=== PATIENT | male | born 1975 | race Caucasian/White ===

== ENCOUNTER → 2016-09-03 | Outpatient (CLI) | payer MEDICAID | LOC: FIMAGING 06:32 | DX: S33.130A Subluxation of L3/L4 lumbar vertebra, initial encounter (principal); S33.140A Subluxation of L4/L5 lumbar vertebra, initial encounter ==

== ENCOUNTER → 2016-10-25 | Outpatient (CLI) | payer MEDICAID | LOC: FIMAGING 14:11 | DX: M54.42 Lumbago with sciatica, left side (principal); M43.06 Spondylolysis, lumbar region; M43.16 Spondylolisthesis, lumbar region; M51.26 Other intervertebral disc displacement, lumbar region ==

== ENCOUNTER → 2016-10-25 | Outpatient (CLI) | payer MEDICAID | LOC: FIMAGING 14:25 | DX: M54.42 Lumbago with sciatica, left side (principal); M43.06 Spondylolysis, lumbar region; M43.16 Spondylolisthesis, lumbar region ==

== ENCOUNTER → 2016-10-27 | Outpatient (CLI) | payer MEDICAID | LOC: FIMAGING 12:56 | DX: M54.42 Lumbago with sciatica, left side (principal); M43.16 Spondylolisthesis, lumbar region; M51.26 Other intervertebral disc displacement, lumbar region; M48.06 Spinal stenosis, lumbar region ==

== ENCOUNTER → 2017-02-10 | Day surgery (SDC) | payer MEDICAID ==
[~2017-02-10] MED LIST: LIDOCAINE 1% 2 ML INJ ID PRN; LIDOCAINE 1% 2 ML INJ ONE; LR 1,000 ML IV ONE; LR 500 ML IV PRN; MEPERIDINE 25 MG/ML SYR IVP PRN; MIDAZOLAM 2 MG/2 ML VIAL ONE; NALOXONE HCL 0.4 MG/ML INJ IVP PRN; ONDANSETRON 4 MG/2 ML VIAL IVP PRN; ONDANSETRON 4 MG/2 ML VIAL ONE; PROPOFOL 200 MG/20 ML VIAL ONE; fentaNYL 100 MCG/2 ML INJ IVP PRN
--- NOTE | 2017-02-10 09:03 | PDANEPAE ---
ANE History of Present Illness 41 year old male here for colonoscopy. ANE Past Medical History - Cardiovascular History Hx Hypertension: Yes Hx Arrhythmias: No Hx Chest Pain: No Hx Coronary Artery / Peripheral Vascular Disease: No Hx CHF / Valvular Disease: No Hx Palpitations: No - Pulmonary History Hx COPD: No Hx Asthma/Reactive Airway Disease: Yes Hx Recent Upper Respiratory Infection: No Hx Oxygen in Use at Home: No Hx Sleep Apnea: No - Neurologic History Hx Cerebrovascular Accident: No Hx Seizures: No - Endocrine History Hx Diabetes: No Hypothyroid: No Hyperthyroid: No - Renal History Hx Renal Disorders: No - Liver History Hx Hepatic Disorders: No - Neurological & Psychiatric Hx Hx Neurological and Psychiatric Disorders: Yes Neurological / Psychiatric History Comment: Anxiety, depression, bipolar with social anxiety - Cancer History Hx Cancer: No - GI History GERD: no - Chronic Pain History Chronic Pain: Yes (chronic lumbar back pain from self reported vertebral fractures. ) ANE Review of Systems - Exercise capacity Exercise capacity: >=4 METS ANE Patient History - Home Medications Home medications: home medication list seen and reviewed - NPO status NPO Status: no food or drink >8 hours - Anes Hx Anes Hx: no prior problems - Smoking Hx Marijuana use: No - Alcohol Use Alcohol Use: Sober - Family Anes Hx Family Anes Hx: neg - N/A ANE Labs/Vital Signs - Vital Signs Vital Signs: reviewed preoperatively; see RN documention for details ANE Physical Exam - Airway Neck exam: FROM Mallampati Score: Class 2 Mouth exam: normal dental/mouth exam, feliciano - Pulmonary Pulmonary: no respiratory distress - Cardiovascular Cardiovascular: regular rate and rhythym - ASA Status ASA Status: II ANE Anesthesia Plan Anesthesia Plan: GA with mask Total IV Anesthesia: Yes
--- NOTE | 2017-02-10 09:43 | PDGENHP ---
History & Physical Chief Complaint: hematochezia History of Present Illness: hematochezia Pertinent Past, Social, Family History: reviewed Relevant Physical Exam: nad Cardiorespiratory Assessment: rrr. ctab
--- NOTE | 2017-02-10 10:35 | GPN ---
[f rep st] PROCEDURE NOTE DATE OF PROCEDURE: 02/10/2017 PROCEDURE: Colonoscopy with polypectomy. INDICATION: History of hematochezia. CONSENT: Informed consent was obtained from the patient after an explanation of risks, benefits, an d alternatives to the procedure. ESTIMATED BLOOD LOSS: None. COMPLICATIONS: None. MEDICATIONS GIVEN: Per Anesthesia. DESCRIPTION OF EXAM: After adequate sedation was achieved, the colonoscope was advanced under direc t vision through the anal orifice and as far as the cecum and terminal ileum. Views were good. Pre p was good. Patient tolerance was good. Retroflexion was performed in the ascending colon and in t he rectum. Findings are as below. FINDINGS: 1. Normal terminal ileum. 2. 3 mm hepatic flexure polyp was removed completely with cold snare polypectomy, retrieved, and pl aced in jar 1. 3. 3 mm sigmoid colon polyp was removed completely with cold snare polypectomy, retrieved, and plac ed in jar 2. 4. 2 mm sigmoid colon polyp was removed completely with cold biopsy forceps as it was flat and plac ed in jar 2. 5. Medium-sized internal hemorrhoids were noted. 6. A hypertrophied anal papilla was noted that was protruding into the anal canal. This likely rep resents what was noted on patient's previous rectal exam. IMPRESSION: Three polyps removed. Suspect hematochezia was likely due to hemorrhoids, although giv en this is no longer an issue, I do not think further treatment is needed at this time. RECOMMENDATIONS: 1. Await pathology results. 2. If 1 or 2 polyps are adenomas, then repeat colonoscopy in 5 years. If all 3 polyps are adenomas , then repeat colonoscopy in 3 years. 3. If hematochezia recurs on a regular basis, please refer back to me for possible treatment of his hemorrhoids. 4. Resume regular diet. /[id number]/MODL
[2017-02-10 10:48] VITALS: TEMP 97.9
[2017-02-10 11:00] VITALS: PULSE 71; RESP 16
[2017-02-10 11:32] VITALS: BP 114/82; O2SAT 95
--- NOTE | 2017-02-10 11:54 | POSTANESTH ---
Post Anesthetic Evaluation Cardiovascular Status: Normal, Stable Respiratory Status: Normal, Stable Level of Consciousness/Mental Status: Can Participate in Eval, Alert and Oriented Pain Control: Adequate, Prn Tx Ordered Nausea/Vomiting Control: Adequate, Prn Tx Ordered Complications Possibly Related to Anesthesia: None Noted
== END | disposition home or self-care (01) ==
LOC: FSGY 08:30
PROVIDERS: ATTEND Internal Medicine
DX: D12.5 Benign neoplasm of sigmoid colon (principal); D12.3 Benign neoplasm of transverse colon; K64.8 Other hemorrhoids; D12.9 Benign neoplasm of anus and anal canal; Z86.010 Personal history of colon polyps; F41.8 Other specified anxiety disorders; F31.9 Bipolar disorder, unspecified; M54.5 Low back pain
CPT/HCPCS: J2250; J2405; J2704

== ENCOUNTER 2017-05-09 05:26 | Day surgery (SDC) | payer MEDICAID ==
[2017-05-09] MEDS ORDERED: LR 1,000 ML IV ONE (05:58)
[2017-05-09] MEDS ORDERED: LIDOCAINE 1% 2 ML INJ ID PRN (05:58)
[2017-05-09 06:25] VITALS: PULSE 66
[2017-05-09] MEDS ORDERED: LIDOCAINE 1% 300 MG/30 ML SDV ONE (06:31)
[2017-05-09] MEDS ORDERED: BUPIVACAINE 0.5% 30 ML SDV ONE (06:31)
--- NOTE | 2017-05-09 07:04 | PDANEPAE ---
ANE History of Present Illness Laparoscopic BL inguinal hernia ANE Past Medical History - Cardiovascular History Hx Hypertension: Yes Hx Arrhythmias: No Hx Chest Pain: No Hx Coronary Artery / Peripheral Vascular Disease: No Hx CHF / Valvular Disease: No Hx Palpitations: No - Pulmonary History Hx COPD: No Hx Asthma/Reactive Airway Disease: No Hx Recent Upper Respiratory Infection: No Hx Oxygen in Use at Home: No Hx Sleep Apnea: No Sleep Apnea Screening Result - Last Documented: Negative Pulmonary History Comment: asthma as child - Neurologic History Hx Cerebrovascular Accident: No Hx Seizures: No Hx Dementia: No - Endocrine History Hx Diabetes: No Hypothyroid: No Hyperthyroid: No - Renal History Hx Renal Disorders: No - Liver History Hx Hepatic Disorders: No - Neurological & Psychiatric Hx Hx Neurological and Psychiatric Disorders: Yes Neurological / Psychiatric History Comment: Anxiety, depression, bipolar with social anxiety, spinal injury - Cancer History Hx Cancer: No - Congenital Disorder History Hx Congenital Disorders: No - GI History GERD: no Hx Gastrointestinal Disorders: No - Other Health History Other Health History: 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 RT SIDED SCIATICA - Chronic Pain History Chronic Pain: Yes (chronic lumbar back pain from self reported vertebral fractures. ) - Surgical History Prior Surgeries: APPENDECTOMY. COLONOSCOPY WITH POLYP REMVL ANE Review of Systems Review of systems is: negative Review of Systems: - Exercise capacity METS (RN): 4 METS ANE Patient History - Allergies Allergies/Adverse Reactions: No Known Allergies Allergy (Unverified 02/10/17 09:19) - Home Medications Home Medications: Lisinopril DAILY06 05/05/17 [Last Taken 05/09/17 04:30] - NPO status NPO Since - Liquids (Date): 05/08/17 NPO Since - Liquids (Time): 21:00 NPO Since - Solids (Date): 05/08/17 NPO Since - Solids (Time): 19:00 - Anes Hx Anes Hx: post operative nausea and vomiting - Smoking Hx Smoking Status: Light smoker Marijuana use: No - Alcohol Use Alcohol Use: Rarely - Family Anes Hx Family Anes Hx: none ANE Labs/Vital Signs - Vital Signs Blood Pressure: 121/72 Heart Rate: 66 Respiratory Rate: 16 O2 Sat (%): 93 Height: 180.34 cm Weight: 92.986 kg ANE Physical Exam - Airway Neck exam: FROM Mallampati Score: Class 3 Mouth exam: small mouth opening - Pulmonary Pulmonary: no respiratory distress, no rales or rhonchi - Cardiovascular Cardiovascular: regular rate and rhythym, no murmur, rub, or gallop - ASA Status ASA Status: II ANE Anesthesia Plan Anesthesia Plan: general endotracheal anesthesia Specialized Airway: video laryngoscope
[2017-05-09] MEDS ORDERED: MIDAZOLAM 2 MG/2 ML VIAL IVP ONE (07:05)
[2017-05-09] MEDS ORDERED: MIDAZOLAM 2 MG/2 ML VIAL ONE (07:08)
[2017-05-09] MEDS ORDERED: PROPOFOL 200 MG/20 ML VIAL ONE (07:12)
[2017-05-09] MEDS ORDERED: PROPOFOL/EMULSION 500 MG/50 ML BOTTLE IV ONE (07:12)
--- NOTE | 2017-05-09 07:12 | PDHPUP ---
History & Physical Update H&P update statement: This history and physical update is based on an assessment of the patient which was completed after admission or registration (within 24 hours), but prior to the surgery/procedure.
[2017-05-09] MEDS ORDERED: fentaNYL 100 MCG/2 ML INJ ONE ×2 (07:13)
[2017-05-09] MEDS ORDERED: LIDOCAINE 2% 5 ML SDV ONE (07:35)
[2017-05-09] MEDS ORDERED: DEXAMETHASONE 4 MG/ML VIAL ONE ×2 (07:35)
[2017-05-09] MEDS ORDERED: KETOROLAC 30 MG/1 ML SDV ONE (07:35)
[2017-05-09] MEDS ORDERED: ROCURONIUM 50 MG/5 ML VIAL ONE (07:35)
[2017-05-09] MEDS ORDERED: ONDANSETRON 4 MG/2 ML VIAL ONE (07:52)
[2017-05-09] MEDS ORDERED: ONDANSETRON 4 MG/2 ML VIAL IVP PRN (08:08)
[2017-05-09] MEDS ORDERED: OXYCODONE/APAP 5/325 TAB PO PRN (08:08)
[2017-05-09] MEDS ORDERED: fentaNYL 100 MCG/2 ML INJ IVP PRN (08:08)
[2017-05-09] MEDS ORDERED: LABETALOL HCL 50 MG/10 ML SYR IVP PRN (08:08)
[2017-05-09] MEDS ORDERED: HYDROCODONE/APAP 5/325 TAB PO PRN (08:08)
[2017-05-09] MEDS ORDERED: NALOXONE HCL 0.4 MG/ML INJ IVP PRN (08:08)
[2017-05-09] MEDS ORDERED: NEOSTIGMINE METHYLSULFATE 3 MG/3 ML SYR ONE (08:10)
[2017-05-09] MEDS ORDERED: GLYCOPYRROLATE 0.2 MG/1 ML VIAL ONE ×3 (08:10)
[2017-05-09] MEDS ORDERED: oxyCODONE IR 5 MG TAB PO PRN (08:22)
--- NOTE | 2017-05-09 08:24 | POSTOPPROG ---
Post Op Note Date of Operation: 05/09/17 Surgeon: Dallas Webber [place]: none Anesthesiologist: Oxana Peace Anesthesia: GET(General Endotracheal) Pre-op Diagnosis: RIGHT IH, possible L recurrent Post-op Diagnosis: BIH Procedure: Lap BIH TEP repair with 3-d max Inf/Abcess present in the surg proc area at time of surgery?: No Complications: none Specimen(s): none
--- NOTE | 2017-05-09 08:40 | GOP ---
[f rep st] OPERATIVE REPORT DATE OF OPERATION: SURGEON: Dallas Webber MD ANESTHESIA: General endotracheal anesthesia was used. ANESTHESIOLOGIST: Dr. Peace. PREOPERATIVE DIAGNOSIS: Recurrent right initial inguinal hernia. POSTOPERATIVE DIAGNOSIS: PROCEDURE PERFORMED: Bilateral laparoscopic TEP inguinal hernia with 3DMax mesh. FINDINGS: Indirect inguinal hernia bilaterally, right direct as well. SPECIMENS: None. ESTIMATED BLOOD LOSS: Less than 10 mL. INDICATIONS: This is a 41-year-old gentleman who presents to the hospital for elective repair of rig ht definite inguinal hernia and left possible recurrent hernia. DESCRIPTION OF PROCEDURE: The patient was brought into the operating room after induction of endotra cheal anesthesia. His abdomen was prepped with chlorhexidine and draped sterilely. A time-out proce dure was then performed according to institutional standards. Local anesthetic was infused in the sk in and subcutaneous tissues of the trocar sites, as well as the bilateral inguinal groin blocks. Ope n preperitoneal trocar placement was done in standard fashion. Balloon dissector was used to create the space and it was maintained at 1512 with carbon dioxide using a structural balloon. The right si de was initially addressed and an indirect and direct inguinal hernia are identified. These are diss ected out of the inguinal hernia spaces and dissection was done from the pubic tubercle to the anteri or superior iliac spine. A 3DMax mesh was then unfurled between the peritoneum and the defect, ensur ing good placement, apposition of the mesh to the abdominal wall. The mesh is in a position that it cannot have peritoneum go underneath the mesh for recurrence. After ensuring good placement of the r ight side, the left side was similarly dissected out from pubic tubercle to the anterior superior geetha ac spine. The mesh was unfurled between the recurrent defect in the indirect space and the peritoneu m. The space was collapsed under direct visualization after hemostasis was assured. Needle, instrum ent and sponge counts were assured to be correct x2. The spaces collapsed, working balloon was taken out. Fascia was closed using 0 Vicryl and all 3 ports were reapproximated at the skin level using 4 -0 Monocryl. Dermabond was applied. The patient awakened, extubated and taken to recovery room in s table condition. No immediate complication. COMPLICATIONS: There were no complications. /[id number]/MODL
[2017-05-09 09:12] VITALS: RESP 12
[2017-05-09 10:27] VITALS: BP 113/78; O2SAT 92
[2017-05-09 11:17] VITALS: TEMP 97.4
--- NOTE | 2017-05-09 12:52 | POSTANESTH ---
Post Anesthetic Evaluation Cardiovascular Status: Normal, Stable Respiratory Status: Normal, Stable Level of Consciousness/Mental Status: Can Participate in Eval Pain Control: Adequate, Prn Tx Ordered Nausea/Vomiting Control: Adequate, Prn Tx Ordered Complications Possibly Related to Anesthesia: None Noted
== END 2017-05-09 10:25 | disposition home or self-care (01) ==
LOC: FSGY 05:26
PROVIDERS: ATTEND Surgery
PROC: 0YQA0ZZ Repair Bilateral Inguinal Region, Open Approach (ICD-10-PCS; principal; 2017-05-09 07:15)
DX: K40.21 Bilateral inguinal hernia, without obstruction or gangrene, recurrent (principal)
CPT/HCPCS: C1727; C1781; J1100; J1885; J2250; J2405; J2704; J2710; J3010